=== PATIENT | female | born 2000 | race Caucasian/White ===

== ENCOUNTER 2024-02-28 13:40 | Emergency (ER) | payer OTHER ==
[~2024-02-28] VITALS: Ht 162.6 cm; Wt 66.3 kg
[2024-02-28] MEDS ORDERED: ADDE20CA3 PO (13:53)
[2024-02-28] MEDS ORDERED: HYDR-3363 PO (13:54)
[2024-02-28 16:04] LABS: URINE PREG TEST NEGATIVE (NEGATIVE)
[2024-02-28 16:06] LABS: AMORPHOUS SEDIMENT SMALL (NEGATIVE); APPEARANCE, URINE CLOUDY (CLEAR); BACTERIA, URINE AUTO NEGATIVE (NEGATIVE); BILIRUBIN, URINE AUTO NEGATIVE (NEGATIVE); BLOOD, URINE BLOOD NEGATIVE (NEGATIVE); COLOR, URINE YELLOW (YELLOW); GLUCOSE, URINE (UA) AUTO NEGATIVE (NEGATIVE); KETONE, URINE AUTO NEGATIVE (NEGATIVE); LEUKOCYTE ESTERASE, URINE AUTO NEGATIVE (NEGATIVE); NITRITE, URINE AUTO NEGATIVE (NEGATIVE); PROTEIN, URINE AUTO NEGATIVE (NEGATIVE); RBC, URINE AUTO 1 /HPF (0-3); SPECIFIC GRAVITY URINE AUTO 1.017 (1.002-1.035); SQUAMOUS EPITHELIAL CELL UR AU 2 /HPF (0-6); UROBILINOGEN, URINE AUTO 0.2 mg/dL (0.0-2.0); WBC, URINE AUTO 1 /HPF (0-3)
[2024-02-28] MEDS ORDERED: MELO7.5T35 PO ×2 (16:32→17:52)
[2024-02-28 17:02] VITALS: BP 118/66; TEMP 98.5; O2SAT 98
== END 2024-02-28 18:06 | disposition home or self-care (01) ==
LOC: M ED 13:40
DX: N83.202 Unspecified ovarian cyst, left side (principal); Z97.5 Presence of (intrauterine) contraceptive device; F90.9 Attention-deficit hyperactivity disorder, unspecified type